=== PATIENT | male | born 1985 | race Caucasian/White ===

== ENCOUNTER 2016-08-24 21:25 | Emergency (ER) | payer MEDICAID ==
[2016-08-24 21:25] VITALS: BMI 28.2
[2016-08-24 21:34] VITALS: TEMP 98.3
--- NOTE | 2016-08-24 21:45 | EDPRACDOC ---
ED Seizure HPI - General Information Chief Complaint: Seizure Stated Complaint: SEIZURE Time Seen by Provider: 08/24/16 21:40 Information Source: Patient Mode Of Arrival: Car Home Medications: Home Medications Lacosamide [Vimpat] 150 mg PO BID 08/04/12 Lamotrigine [Lamictal] 300 mg PO QAM 08/04/12 Sodium Chloride [Deep Sea] 1 spray ALVARO Q2H PRN 08/28/14 Docusate Sodium 100 mg PO MOWEFR 11/02/14 Paroxetine HCl [Paxil] 20 mg PO QAM 11/02/14 Clobazam [Onfi] 20 mg PO 0730,1930 12/23/14 Lamotrigine [Lamictal] 150 mg PO .DAILY@1300 12/23/14 Lamotrigine [Lamictal] 450 mg PO HS 12/23/14 Trazodone HCl 100 mg PO QHS 03/11/15 Multivits,Th W-Fe,Other Min [Thera-M] 1 tab PO DAILY 06/20/15 Rufinamide [Banzel] 600 mg PO QAM 09/06/15 Clobazam [Onfi] 10 mg PO 1300 01/20/16 Clotrimazole [Fungi Cure] 60 ml TP DAILY PRN 05/22/16 Guaifenesin-Dextromethorphan [Robitussin Dm] 10 ml PO Q6 PRN 05/22/16 Guaifenesin/D-Methorphan Hb/PE [Robitussin Cough-Cold Cf Liq] 10 ml PO QID PRN 05/22/16 Ibuprofen Tablet [Motrin] 800 mg PO .TID WITH FOOD PRN 05/22/16 Levetiracetam [Keppra] 1,500 mg PO BID 05/22/16 Loperamide HCl [Imodium A-D] 2 mg PO DIR PRN 05/22/16 Magnesium Hydroxide [Milk of Magnesia] 30 ml PO DAILY PRN 05/22/16 Magnesium Hydroxide/Al Hydrox [Mylanta Liquid] 30 ml PO Q4H PRN 05/22/16 Phenol/Glycerin [Chloraseptic Max [place]] 30 ml MM Q2H PRN 05/22/16 Pramoxine HCl/Benzalkonium Chl [Neosporin John To Go [place]] 7.7 ml TOP BID PRN Allergies/Adverse Reactions: Allergies Allergy/AdvReac Type Severity Reaction Status Date / Time cyclobenzaprine HCl Allergy Mild Unknown/See Verified 05/22/16 08:29 [From Flexeril] Comments diazepam [From Valium] Allergy Unknown Unknown/See Verified 05/22/16 08:29 Comments diphenhydramine HCl Allergy Unknown Verified 05/22/16 08:29 [From Benadryl] divalproex sodium Allergy Unknown Verified 05/22/16 08:29 [From Depakote] tramadol Allergy Unknown Verified 05/22/16 08:29 - History of Present 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 Hx of same. Small abrasion to back of head. Has no current complaints. Denies fever, cough, sore throat, pain, sob, N/V/D, chnages in urine or BM. Seizure Duration: unknown Witnessed: UNKNOWN Postictal: No Episodes: Reports: recent history Compliant with Seizure Medication: Yes Seizure Type: Reports: Other (unknown) Seizure Trigger: Reports: Unknown Prior to Seizure: Reports: Normal During Seizure: Reports: Other (unknown) Arousable To: Reports: Name Immediately After Seizure: Reports: Other (unknown) Relevant History of: Reports: None Associated Signs & Symptoms: Reports: None - [place] Coma scale Coma Scale Eye Opening: Spontaneous Coma Scale Motor: Obeys Commands Coma Scale Verbal: Oriented Coma Scale Total: 15 - Treatment Prior to ED Arrival Reported Medications/Treatment [facility] Treatment BLS IV Yes ED Past Medical History - History Reviewed Yes Nurses notes reviewed and agree except as marked - Patient Medical History Neurological History: Reports: Seizures Psychological History: Reports: Depression Additional Past Medical History: TBI Surgical History: Reports: Other (CRANIOTOMY) - Social Medical History Smoking Status: Never smoker EDM Review of Systems - Review of Systems ROS Negative Except as Marked: Yes All systems reviewed and were negative except as marked Psychiatric: Other (hx of seizures) ROS Comments: abrasion on back of head, no tenderness, no swelling. - Physical Exam Constitutional: No apparent distress, Alert Oriented to: Time, Person, Place Last recorded Vital Signs: Last Vital Signs Temp 98.3 F 08/24/16 21:31 Pulse 65 08/24/16 21:31 Resp 20 08/24/16 21:31 BP 129/58 L 08/24/16 21:31 Pulse Ox 95 08/24/16 21:31 Oxygen Pulse Oxygen Saturation 95 O2 Device Room Air Oxygen Flow Rate Fraction of Inspired Oxygen ( FIO2) - HEENT Head: Normal Eye Exam: negative: Conjunctival Injection, Scleral Icterus Oropharynx: negative: Drooling TMJ: Normal Nose: No Symptoms Reported Neck: Normal - Respiratory/Cardiovascular Respiratory: Normal - CTA Cardiovascular: Normal - GI Auscultation: Normal Palpation: Normal Tenderness: Non tender - Musculoskeletal Back: Normal Extremities: Normal - Integumentary Skin: Normal - Neurologic Mood Description: Normal Thought: Coherent Perception: Normal Decision Time to Discharge: 22:33 - Departure Disposition: Home Condition: Stable Final Diagnosis: Seizure Instructions: Seizures Education/Counseling Given To: Patient Education/Counseling Given Regarding: Diagnosis, Treatment, Prognosis, Follow Up Referrals: Selena Bingham MD [Primary Care Provider] - One Week Additional Instructions: Follow up with primary care. Return to Ed for any new or worsening symptoms.
[2016-08-24 23:24] VITALS: BP 122/60; PULSE 59
== END 2016-08-24 23:23 | disposition home or self-care (01) ==
LOC: ED 21:25
DX: R56.9 Unspecified convulsions (principal)
CPT/HCPCS: 99284